=== PATIENT | male | born 1995 | race American Indian/Alaskan Native ===

== ENCOUNTER 2017-04-03 01:03 | Emergency (ER) | payer OTHER ==
--- NOTE | 2017-04-03 01:14 | PDOC ---
History of Present Illness - General Chief Complaint: Lightheaded Stated Complaint: LIGHTHEADED, CHEST PAIN Time Seen by Provider: 04/03/17 01:06 - History of Present Illness Initial Comments: This 21-year-old with a history of "gastric ulcer", diagnosed last year and treated with amoxicillin with "another antibiotic" followed by omeprazole presents with chest pain and headache, accompanied by some lightheadedness for the last several hours. Patient states that he has been taking his omeprazole irregularly and also has been eating foods that have previously caused some increase in his gastric symptoms (for example, eggs/highly spiced foods/coffee) . Today, he has been bothered by bitemporal headache (patient describes headache pain in a circular band distribution around his head). This evening, he noted discomfort in his chest; patient states that this discomfort is similar to the dyspepsia pain that he has had with his gastric issue. He denies shortness of breath/palpitations/diaphoresis/nausea. He has no vision changes/photophobia, acute neurologic deficits, vomiting associated with his headache. No history of head trauma. 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 Cardiac risk factors: Positive family history for coronary artery disease; no smoking/obesity/hyperlipidemia/hypertension/diabetes mellitus Past History - Past Medical History Allergies/Adverse Reactions: Allergies Allergy/AdvReac Type Severity Reaction Status Date / Time No Known Allergies Allergy Verified 04/03/17 01:21 Home Medications: Ambulatory Orders Omeprazole 20 mg PO DAILY 04/03/17 Review of Systems - Review of Systems Able to Perform ROS?: Yes Comments:: 12 point review of systems is negative except for what is noted in the history of present illness *Physical Exam - Physical Exam Comments: GENERAL: Adolescent male, alert and oriented 3, appearing anxious but in no acute distress HEAD: Normal with no signs of trauma. EYES: PERRLA, EOMI, sclera anicteric, conjunctiva clear. ENT: Ears normal, nares patent, oropharynx clear without exudates. Moist mucous membranes. NECK: Normal range of motion, supple without lymphadenopathy, JVD, or masses. LUNGS: Breath sounds equal, clear to auscultation bilaterally. No wheezes, and no crackles. HEART:Regular rate and rhythm, normal S1 and S2 without murmur, rub or gallop. ABDOMEN:.normal bowel sounds No guarding,tenderness or rebound.No masses No distention. EXTREMITIES: Normal range of motion, no edema. No clubbing or cyanosis. No erythema, or tenderness. NEUROLOGICAL: Cranial nerves II through XII grossly intact. Normal speech. No focal neurological deficits. MUSCULOSKELETAL: Back non-tender to palpation, no CVA tenderness SKIN: Warm, Dry, normal turgor, no rashes or lesions noted. Heart Score/ECG Review - History History: Slightly suspicious - Electrocardiogram EKG: Normal - Age Age: </= 45 - Risk Factors Risk Factors Heart Score: Yes Positive family hx of cardiac disease Based on the list above the patient has:: 1-2 risk factors Medical Decision Making - Medical Decision Making This 21-year-old young man presents with several complaints: Bitemporal headache consistent with tension headache and substernal chest discomfort. By the patient's own admission, his chest pain is similar to what he experienced prior to diagnosis of gastritis/gastric ulcer/GERD/H. pylori last year. He has not been compliant with his omeprazole and diet has also been problematic. He also admits to being "stressed", worrying about returning to college in 4 days. His only risk factor for coronary artery disease is family history. Patient reassured regarding likelihood that chest pain is likely related to his GI issues. Factors that could be related to his pain and to his anxiety included coffee intake: The patient will decrease the amount of coffee he drinks daily. 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 Patient was given acetaminophen 650 mg now with advice to continue this as needed for headache *DC/Admit/Observation/Transfer Diagnosis at time of Disposition: Atypical chest pain, Tension headache - Discharge Dispostion Disposition: HOME Condition at time of disposition: Stable - Referrals - Patient Instructions Printed Discharge Instructions: Tension Headache (Alternative Therapy), DI for Atypical Chest Pain Additional Instructions: Continue omeprazole as prescribed Avoid coffee; avoid high fat/high acidity in your diet Try to get regular exercise every day (such as walking) Acetaminophen as needed for headache Follow-up with your PCP within the next 3-4 days Return to ER if you have severe chest pain/shortness of breath/palpitations - Post Discharge Activity
[2017-04-03 01:30] VITALS: BP 144/92; PULSE 108; TEMP 98.2; BMI 31.3
[2017-04-03] MEDS ORDERED: ACETAMINOPHEN 325 MG TABLET (FP) PO ONE (01:55)
[2017-04-03] MEDS ORDERED: ACETAMINOPHEN 325 MG TABLET (FP) ONE (01:56)
== END 2017-04-03 02:06 | disposition home or self-care (01) ==
LOC: FER 01:03
DX: R07.89 Other chest pain (principal); G44.209 Tension-type headache, unspecified, not intractable
CPT/HCPCS: 99281-25